=== PATIENT | female | born 1980 | race African-American/Black ===

== ENCOUNTER 2017-04-17 09:42 | Emergency (ER) | payer SELFPAY ==
[~2017-04-17] VITALS: Ht 172.7 cm; Wt 122.5 kg
[2017-04-17] MEDS ORDERED: METF500T4 PO (09:54)
[2017-04-17] MEDS ORDERED: AMLODIPINE (09:54)
[2017-04-17] MEDS ORDERED: SIMV10TA6 PO (09:54)
[2017-04-17] MEDS ORDERED: METO25TA6 PO (09:54)
[2017-04-17] MEDS ORDERED: BENA20TA3 PO (09:54)
[2017-04-17 09:55] VITALS: BP 132/85
== END 2017-04-17 10:38 | disposition left against medical advice (07) ==
LOC: ER 09:43
DX: R51 Headache (principal); I10 Essential (primary) hypertension; E11.9 Type 2 diabetes mellitus without complications; E78.00 Pure hypercholesterolemia, unspecified; Z79.84 Long term (current) use of oral hypoglycemic drugs; Z79.899 Other long term (current) drug therapy; F17.210 Nicotine dependence, cigarettes, uncomplicated
CPT/HCPCS: 99283; Z7610; 99281